=== PATIENT | female | born 1990 | race Two or more races ===

== ENCOUNTER 2020-06-23 11:43 | Outpatient (REF) | payer SELFPAY | END 2020-06-23 11:44 | disposition home or self-care (01) | LOC: HO.LAB 11:43 | PROVIDERS: Visit Provider Internal Medicine | DX: Z20.828 Contact with and (suspected) exposure to other viral communicable diseases (principal) | CPT/HCPCS: C9803; U0003 ==

== ENCOUNTER 2020-06-27 10:50 | Outpatient (REF) | payer SELFPAY | END 2020-06-27 10:51 | disposition home or self-care (01) | LOC: HO.LAB 10:50 | PROVIDERS: Visit Provider Internal Medicine | DX: Z20.828 Contact with and (suspected) exposure to other viral communicable diseases (principal) | CPT/HCPCS: C9803; U0003 ==